=== PATIENT | male | born 1945 | race Caucasian/White ===

== ENCOUNTER 2024-10-12 06:16 | Day surgery (SDC) | payer MEDICARE ==
[2024-10-08 15:42] VITALS: BMI 29.2
[2024-10-12] MEDS ORDERED: AFRIN NASAL MIST 15 ML BOT ONE (07:47)
[2024-10-12 08:17] LABS: Hematocrit 42.3 % (38.8-50.0); Hemoglobin 14.3 g/dL (13.5-17.5); Mean Corpuscular HGB CONC 33.8 g/dL (32.0-36.0); Mean Corpuscular Hemoglobin 29.5 pg (27.0-33.0); Mean Corpuscular Volume 87.2 fL (81.2-95.1); Mean Platelet Volume 9.6 fL (7.4-10.4); Platelet Count 239 10x3/uL (150-450); RBC Distribution Width 12.7 % (11.5-14.5); Red Blood Cell (RBC) Count 4.85 10x6/uL (4.32-5.72); White Blood Cell (WBC) Count 9.8 10x3/uL (3.5-10.5)
[2024-10-12 08:30] LABS: Anion Gap 14 mmol/L (10-20); BUN (Urea Nitrogen) 11 mg/dL (8.4-25.7); Calc. Creatinine Clearance 85 mL/min (70-130); Calcium 9.8 mg/dL (7.8-10.44); Carbon Dioxide 27 mmol/L (23-31); Chloride 104 mmol/L (98-107); Estimated GFR 91; Glucose 113 mg/dL (83-110); Potassium 3.9 mmol/L (3.5-5.1); Sodium 141 mmol/L (136-145)
[2024-10-12] MEDS ORDERED: Glycopyrrolate 0.2 MG/ML 5 ML SYRINGE ONE (08:38)
[2024-10-12] MEDS ORDERED: EPINEPHrine 1 MG/ML VIAL ONE ×2 (10:04→10:56)
[2024-10-12] MEDS ORDERED: PROPOFOL 20 ML ONE (10:08)
[2024-10-12] MEDS ORDERED: Midazolam HCl 2 mg/2 ml Vial ONE (10:08)
[2024-10-12] MEDS ORDERED: Rocuronium Bromide 10 MG/ML (10ML VIAL) ONE (10:08)
[2024-10-12] MEDS ORDERED: fentaNYL 50 mcg/mL 1 mL Vial ONE (10:08)
[2024-10-12] MEDS ORDERED: Dexmedetomidine 200 MCG/2 ML VIAL ONE (10:08)
[2024-10-12] MEDS ORDERED: Ondansetron PF 4 MG/2 ML Vial ONE (10:08)
[2024-10-12] MEDS ORDERED: SUGAMMADEX SODIUM 200 MG/2 ML VIAL ONE (10:08)
[2024-10-12] MEDS ORDERED: Dexamethasone 20 MG/5 ML VIAL ONE (10:08)
[2024-10-12] MEDS ORDERED: Lidocaine 1% PF 5 ML VIAL ONE (10:09)
[2024-10-12] MEDS ORDERED: ePHEDrine Sulfate 50 MG/10 ML VIAL ONE (10:54)
[2024-10-12] MEDS ORDERED: Acetaminophen 500 MG TAB ONE (13:19)
== END 2024-10-12 13:40 | disposition home or self-care (01) ==
LOC: CSHSDC 06:16
PROVIDERS: ATTEND Otolaryngology
PROC: 0CBR8ZX Excision of Epiglottis, Via Natural or Artificial Opening Endoscopic, Diagnostic (ICD-10-PCS; principal; 2024-10-12)
PROC: 0BJ08ZZ Inspection of Tracheobronchial Tree, Via Natural or Artificial Opening Endoscopic (ICD-10-PCS; 2024-10-12)
DX: C32.1 Malignant neoplasm of supraglottis (principal); B37.9 Candidiasis, unspecified; J45.909 Unspecified asthma, uncomplicated; J43.9 Emphysema, unspecified; J34.2 Deviated nasal septum; J34.3 Hypertrophy of nasal turbinates; J32.9 Chronic sinusitis, unspecified; H90.3 Sensorineural hearing loss, bilateral; I10 Essential (primary) hypertension; I25.10 Atherosclerotic heart disease of native coronary artery without angina pectoris; E11.9 Type 2 diabetes mellitus without complications; E78.5 Hyperlipidemia, unspecified; G47.33 Obstructive sleep apnea (adult) (pediatric); F17.210 Nicotine dependence, cigarettes, uncomplicated; Z88.1 Allergy status to other antibiotic agents; Z79.4 Long term (current) use of insulin; Z79.84 Long term (current) use of oral hypoglycemic drugs; Z79.899 Other long term (current) drug therapy
CPT/HCPCS: 31536; 31622; 80048; 85027; 93005; J0171; J1100; J2250; J2405; J2704; J3010; 36415; 88305; 88312; 88341; 88342; 93010